=== PATIENT | female | born 1985 | race Caucasian/White ===

== ENCOUNTER 2016-11-03 22:20 | Emergency (ER) | payer BC ==
[2016-11-03 22:40] LABS: LEUKOCYTE ESTERASE,URINE 3+ (NEGATIVE); NITRITE,URINE NEGATIVE (NEGATIVE)
[2016-11-03 22:41] LABS: COLOR PALE YELLOW
--- NOTE | 2016-11-03 22:43 | UCPHY ---
H & P Patient Type: New HPI/ROS: CHIEF COMPLAINT: Dysuria, frequent urination. HISTORY OF PRESENT ILLNESS: The patient is a 31-year-old female with a history of UTI and interstitial cystitis presenting with dysuria and frequent urination. She reports that she chronically has the symptoms of UTI including dysuria but tonight the burning became more severe than it usually is. She admits associated lower abdominal pain and chills which are not usually present for her. She denies fever, diarrhea, vomiting, nausea, back pain, or other complaints. REVIEW OF SYSTEMS: Constitutional: No fever, no chills. Gastrointestinal: No nausea vomiting or diarrhea. No abdominal pain. Genitourinary: As above. Musculoskeletal: No back pain, or flank pain Abdomen: Soft, nontender. Some suprapubic sensitivity Skin: No rashes. Past Medical/Surgical History: Interstitial cystitis, UTI, jaw surgery. Social History: Mother. Physical Exam: General Appearance: Alert, no distress. Afebrile. Normal phonation. No respiratory distress. Abdomen: Soft and nontender, no masses, bowel sounds normal. No CVA tenderness Skin: Warm and dry, no rashes. Constitutional: Initial Vital Signs Temperature (C) 36.4 C 11/03/16 22:45 Heart Rate 83 11/03/16 22:45 Respiratory Rate 16 11/03/16 22:45 Blood Pressure 138/82 H 11/03/16 22:45 O2 Sat (%) 100 11/03/16 22:45 O2 Delivery Mode Room Air Allergies/Adverse Reactions: amoxicillin Allergy (Verified 11/03/16 22:40) Home Medications: Medication Instructions Recorded Nitrofurantoin Macrobid [Macrobid] 100 mg PO BID #10 cap 11/03/16 Phenazopyridine HCl [Pyridium] 200 mg PO TID #6 tab 11/03/16 Medical Decision Making ED Course/Re-evaluation: UA ordered and is consistent with UTI. Cultures pending We discussed therapeutic options. She is convinced that this is a bacterial process superimposed on top of her chronic interstitial cystitis. She thinks that to at the time of her jaw surgery some 4 weeks ago that she might have been on Cipro thus will go with nitrofurantoin. She also gone some peridium. Differential Diagnosis: Differential diagnosis includes but is not limited to: Urinary tract infection, pyelonephritis, cystitis, ureterolithiasis, kidney stone, urinary retention,. - Data Points Laboratory Results: 11/03/16 22:35 Urine Color PALE YELLOW Urine Appearance HAZY Urine pH 6.0 (5.0-7.5) Ur Specific [place] <= 1.005 (1.002-1.030) Urine Protein NEGATIVE (NEGATIVE) Urine Ketones NEGATIVE (NEGATIVE) Urine Blood 3+ H (NEGATIVE) Urine Nitrate NEGATIVE (NEGATIVE) Urine Bilirubin NEGATIVE (NEGATIVE) Urine Urobilinogen 0.2 EU EU (0.2-1.0) Ur Leukocyte Esterase 3+ H (NEGATIVE) Urine RBC 50-182 /hpf H /hpf (0-3) Urine WBC 50-182 /hpf H /hpf (0-3) Ur Epithelial Cells TRACE /lpf /lpf (NONE-1+) Urine Bacteria 2+ /hpf H /hpf (NONE SEEN) Ur Culture Indicated? INDICATED H (NI) Urine Glucose NEGATIVE (NEGATIVE) Medications Given: Discontinued Medications Nitrofurantoin (Macrobid 100mg Prepack#2) 1 btl TAKEHOME EDNOW ONE PRN Reason: Protocol Stop: 11/03/16 23:09 Last Admin: 11/03/16 23:18 Dose: 1 btl Phenazopyridine HCl (Pyridium) 200 mg PO EDNOW ONE Stop: 11/03/16 23:09 Last Admin: 11/03/16 23:18 Dose: 200 mg Departure - Departure Disposition: Home, Routine, Self-Care Clinical Impression: Cystitis Condition: Good Instructions: Nitrofurantoin Combination (By mouth), Urinary Tract Infection in Women (ED) Additional Instructions: Take Macrobid as prescribed. Operating for symptomatic improvement Follow up with your primary care provider next week if your symptoms are not improving. Return if fever nausea vomiting, or flank pain You have been given the telephone number of the on-call urologist and can follow up as needed. Use Ibuprofen and Tylenol for pain and/or fever. Return for any serious worsening of condition. Referrals: Tricia Brewster MD [Primary Care Provider] - As per Instructions Jordy Valladares MD [Medical Doctor] - As per Instructions Prescriptions: Nitrofurantoin Macrobid [Macrobid] 100 mg PO BID #10 cap Phenazopyridine HCl [Pyridium] 200 mg PO TID #6 tab - PQRS PQRS Measurement: Not applicable. Report Scribed for: Kuldeep Cisneros Report Scribed by: Dar Etienne Date of Report: 11/03/16 Time of Report: 22:42 Physician Review and Approval Statement: 11/03/16 22:42 Portions of this note were transcribed by a medical clinic manager. I personally performed a history, physical exam, medical decision making, and confirmed accuracy of information the transcribed note.
[2016-11-03 22:47] LABS: BACTERIA 2+ /hpf (NONE SEEN); RBC,URINE 50-182 /hpf (0-3); WBC,URINE 50-182 /hpf (0-3)
[2016-11-03 22:49] VITALS: BP 138/82; PULSE 83; RESP 16; TEMP 97.6; O2SAT 100
[2016-11-03] MEDS ORDERED: PHENAZOPYRIDINE HCL 200 MG TAB PO ONE (23:08)
[2016-11-03] MEDS ORDERED: NITROFURANTOIN 100MG PREPACK#2 BTL TAKEHOME ONE (23:08)
== END 2016-11-03 23:22 | disposition home or self-care (01) ==
LOC: CED 22:20
DX: N39.0 Urinary tract infection, site not specified (principal); B96.20 Unspecified Escherichia coli [E. coli] as the cause of diseases classified elsewhere
CPT/HCPCS: 81003-PO; 81015-PO; G0463-PO

== ENCOUNTER 2017-05-26 20:24 | Emergency (ER) | payer BC ==
[2017-05-26 20:48] VITALS: RESP 16
[2017-05-26] MEDS ORDERED: NS 1,000 ML IV ONE (21:00)
[2017-05-26] MEDS ORDERED: DIAZEPAM 10 MG/2 ML SYR IVP ONE (21:00)
[2017-05-26 21:06] LABS: COLOR YELLOW; LEUKOCYTE ESTERASE,URINE NEGATIVE (NEGATIVE); NITRITE,URINE NEGATIVE (NEGATIVE)
--- NOTE | 2017-05-26 21:06 | EDPHY ---
H & P Stated Complaint: headache,pain right neck and shoulder,tingling face,R arm Time Seen by Provider: 05/26/17 20:31 HPI/ROS: Chief Complaint: Headache, neck and shoulder pain HPI: 31-year-old woman presenting with 8 days of right-sided posterior headache with neck and shoulder pain. Has had some low of sensation of her arms tingling. She has seen her chiropractor twice since this started with no relief. Has had a history of temporomandibular joint disease with corrective surgery last September has no trouble since then. She has been taking Tylenol a 1000 mg every 6 hours and ibuprofen 600 mg every 6 hours without any relief. The headache is constant. It is described as feeling like the neck and her head is tight. At worst is a 5/10 rate is now. She has had some mild nausea but no vomiting. No vision or hearing changes. No dizziness or lightheadedness. No falls or injuries. It is not the worst headache of her life. It has been gradual in onset. It is not changing over the course of the day. There are no aggravating or alleviating factors. No photophobia. She has had a very significant migraine headache in the past that is not similar to this. She feels it is musculoskeletal in nature but is frustrated that the ibuprofen and Tylenol are not working. She has not had any worsening stressors or other changes in her life. ROS: 10 point Review of Systems is negative except as noted in the HPI. PMH: Interstitial cystitis Social History: No smoking, rare alcohol, no recreational drug use Family History: non-contributory Physical Exam: Gen: Awake, Alert, No Distress HEENT: Bilateral ears are normal Nose: no rhinorrhea Eyes: PERRLA, EOMI Mouth: Moist mucosa Neck: Supple, no JVD, she has got palpable spasm in the right trapezius at the insertion in the occiput and down the lateral aspect of her neck. No midline tenderness. She has no carotid bruits. Chest: nontender, lungs clear to auscultation Heart: S1, S2 normal, no murmur Abd: Soft, non-tender, no guarding Back: no CVA tenderness, no midline tenderness Ext: no edema, non-tender, sensations intact in the radial, median and ulnar nerve distribution Skin: no rash Neuro: CN II-XII intact, Sensation grossly intact, Strength 5/5 in bilateral upper and lower extremities. She has normal finger-nose. She has negative Romberg. Completely normal neurologic exam. - Personal History Current Tetanus Diphtheria and Acellular Pertussis (TDAP): Yes Tetanus Vaccine Date: 2014 - Medical/Surgical History Hx Asthma: No Hx Chronic Respiratory Disease: No Hx Diabetes: No Hx Cardiac Disease: No Hx Renal Disease: No Hx Cirrhosis: No Hx Alcoholism: No Hx HIV/AIDS: No Hx Splenectomy or Spleen Trauma: No Other PMH: Interstital CYSTITIS. JAW SURGERY - Social History Smoking Status: Never smoked Constitutional: Initial Vital Signs Temperature (C) 37.2 C 05/26/17 20:41 Heart Rate 80 05/26/17 20:41 Respiratory Rate 16 05/26/17 20:41 Blood Pressure 152/80 H 05/26/17 20:41 O2 Sat (%) 98 05/26/17 20:41 O2 Delivery Mode Room Air Allergies/Adverse Reactions: amoxicillin Allergy (Verified 05/26/17 20:39) Home Medications: Medication Instructions Recorded NK [No Known Home Meds] 05/26/17 Medical Decision Making ED Course/Re-evaluation: 31-year-old with nonspecific neck pain headache. Pain is improved after diazepam and Toradol. She is completely normal neurologic exam. No red flags for intracranial bleed, blood clot, or infection. She will follow up with primary care physician in 2 days. Will discharge her with some take-home diazepam as a muscle relaxer. I have suggested that acupuncture might provide her some relief. This should be done in coordination with primary care physician. She will return for any concerns or worsening symptoms. - Data Points Laboratory Results: Laboratory Results 05/26/17 21:10 05/26/17 21:10 05/26/17 05/26/17 05/26/17 21:10 21:10 21:00 WBC 11.39 10^3/uL H 10^3/uL (3.80-9.50) RBC 5.11 10^6/uL 10^6/uL (4.18-5.33) Hgb 14.4 g/dL g/dL (12.6-16.3) Hct 42.4 % % (38.0-47.0) MCV 83.0 fL fL (81.5-99.8) MCH 28.2 pg pg (27.9-34.1) MCHC 34.0 g/dL g/dL (32.4-36.7) RDW 12.6 % % (11.5-15.2) Plt Count 328 10^3/uL 10^3/uL (150-400) MPV 9.1 fL fL (8.7-11.7) Neut % (Auto) 67.1 % % (39.3-74.2) Lymph % (Auto) 23.0 % % (15.0-45.0) [place] % (Auto) 5.0 % % (4.5-13.0) Eos % (Auto) 4.1 % % (0.6-7.6) Baso % (Auto) 0.5 % % (0.3-1.7) Nucleat RBC Rel Count 0.0 % % (0.0-0.2) Absolute Neuts (auto) 7.64 10^3/uL H 10^3/uL (1.70-6.50) Absolute Lymphs (auto) 2.62 10^3/uL 10^3/uL (1.00-3.00) Absolute Monos (auto) 0.57 10^3/uL 10^3/uL (0.30-0.80) Absolute Eos (auto) 0.47 10^3/uL H 10^3/uL (0.03-0.40) Absolute Basos (auto) 0.06 10^3/uL 10^3/uL (0.02-0.10) Absolute Nucleated RBC 0.00 10^3/uL 10^3/uL (0-0.01) Immature Gran % 0.3 % % (0.0-1.1) Immature Gran # 0.03 10^3/uL 10^3/uL (0.00-0.10) Sodium 139 mEq/L mEq/L (134-144) Potassium 4.0 mEq/L mEq/L (3.5-5.2) Chloride 103 mEq/L mEq/L (97-110) Carbon Dioxide 23 mEq/l mEq/l (22-31) Anion Gap 13 mEq/L mEq/L (8-16) BUN 13 mg/dL mg/dL (7-23) Creatinine 1.1 mg/dL H mg/dL (0.6-1.0) Estimated GFR 57 Glucose 101 mg/dL H mg/dL (70-100) Calcium 9.4 mg/dL mg/dL (8.5-10.4) Urine Color YELLOW Urine Appearance CLEAR Urine pH 7.0 (5.0-7.5) Ur Specific Max 1.010 (1.002-1.030) Urine Protein NEGATIVE (NEGATIVE) Urine Ketones NEGATIVE (NEGATIVE) Urine Blood NEGATIVE (NEGATIVE) Urine Nitrate NEGATIVE (NEGATIVE) Urine Bilirubin NEGATIVE (NEGATIVE) Urine Urobilinogen 0.2 EU EU (0.2-1.0) Ur Leukocyte Esterase NEGATIVE (NEGATIVE) Urine Glucose NEGATIVE (NEGATIVE) Medications Given: Discontinued Medications Diazepam (Valium Injection) 5 mg IVP EDNOW ONE Stop: 05/26/17 21:01 Last Admin: 05/26/17 21:18 Dose: 5 mg Sodium Chloride (Ns) 1,000 mls @ 0 mls/hr IV ONCE ONE; Wide Open PRN Reason: Protocol Stop: 05/26/17 21:01 Last Admin: 05/26/17 21:19 Dose: 1,000 mls Ketorolac Tromethamine (Toradol) 15 mg IVP EDNOW ONE Stop: 05/26/17 21:41 Last Admin: 05/26/17 21:45 Dose: 15 mg Departure - Departure Disposition: Home, Routine, Self-Care Clinical Impression: Headache Condition: Good Instructions: General Headache (ED), Diazepam (By mouth) Additional Instructions: Follow up with her primary care physician in 2 days. You may take diazepam, 5 mg every 8 hours as needed for muscle pain and spasm. Continue alternating ibuprofen with acetaminophen every 4 hours for aches and pains. Return to the emergency department for worsening headache, nausea, vomiting, fevers, chills, stiff neck, or any other concerns. Referrals: Tricia Brewster MD [Primary Care Provider] - As per Instructions
[2017-05-26 21:13] LABS: % IMMATURE GRANULYOCYTES 0.3 % (0.0-1.1); ABSOLUTE IMMATURE GRANULOCYTES 0.03 10^3/uL (0.00-0.10); ADD DIFF? NO; ADD MORPH? NO; ADD SCAN? NO; ATYPICAL LYMPHOCYTE FLAG 10 (0-99); FRAGMENT RBC FLAG 0 (0-99); HEMATOCRIT 42.4 % (38.0-47.0); HEMOGLOBIN 14.4 g/dL (12.6-16.3); LEFT SHIFT FLG 0 (0-99); LIPEMIA HEMOLYSIS FLAG 90 (0-99); MEAN CELL HEMOGLOBIN 28.2 pg (27.9-34.1); MEAN PLATELET VOLUME 9.1 fL (8.7-11.7); PLATELET CLUMPS FLAG 0 (0-99); PLATELET COUNT 328 10^3/uL (150-400); RED BLOOD CELL COUNT 5.11 10^6/uL (4.18-5.33); RED CELL DISTRIBUTION WIDTH 12.6 % (11.5-15.2)
[2017-05-26 21:27] LABS: CALCIUM 9.4 mg/dL (8.5-10.4); CREATININE 1.1 mg/dL (0.6-1.0)
[2017-05-26] MEDS ORDERED: KETOROLAC 15 MG/1 ML SDV IVP ONE (21:40)
[2017-05-26] MEDS ORDERED: DIAZEPAM 5 MG PREPACK#4 BTL TAKEHOME ONE (22:09)
[2017-05-26 22:42] VITALS: BP 130/88; PULSE 68; TEMP 98.6; O2SAT 99
== END 2017-05-26 22:39 | disposition home or self-care (01) ==
LOC: CED 20:24
DX: R51 Headache (principal); E86.9 Volume depletion, unspecified
CPT/HCPCS: 80048-PO; 81003-PO; 85025-PO; 96374; J1885

== ENCOUNTER 2017-06-02 15:27 | Emergency (ER) | payer BC ==
[2017-06-02 15:41] VITALS: TEMP 98.6
[2017-06-02] MEDS ORDERED: LORazepam 1 MG TAB PO ONE (16:44)
--- NOTE | 2017-06-02 16:49 | EDPHY ---
H & P Time Seen by Provider: 06/02/17 16:04 HPI/ROS: CHIEF COMPLAINT: Anxiety HISTORY OF PRESENT ILLNESS: 31-year-old female arrives via private vehicle with her and child complaining of several weeks of worsening anxiety. No suicidal or homicidal ideation. Believes that she has a baseline of mild anxiety which has become exacerbated recently after a trip to the emergency department for ongoing headache at which point she was given prescription for Valium , notes that the Valium helps her anxiety but she does not like the adverse effect, notably the euphoria and somnolence. She has therefore not been taking this. She does not have an ongoing relationship with a therapist or mental health professional. She has no history of hospitalizations for mental health issues. No history of thyroid abnormality. PRIMARY CARE PROVIDER: Dr. Tricia Brewster PHYSICAL EXAM (Prior to examination, patient consented to physical exam, hands were washed and my usual and customary physical exam procedures followed) 1) GENERAL: Well-developed, well-nourished, alert and oriented. She is tearful , appears sad . 2) HEAD: Normocephalic 3) HEENT: sclera anicteric 4) LUNGS: Breathing comfortably. Smoking Status: Never smoked Constitutional: Initial Vital Signs Temperature (C) 37 C 06/02/17 15:39 Heart Rate 81 06/02/17 15:39 Respiratory Rate 18 06/02/17 15:39 Blood Pressure 135/80 H 06/02/17 15:39 O2 Sat (%) 99 06/02/17 15:39 O2 Delivery Mode Room Air Allergies/Adverse Reactions: amoxicillin Allergy (Verified 06/02/17 15:38) Home Medications: Medication Instructions Recorded LORazepam [Ativan] 0.5 mg PO Q6 #7 tablet 06/02/17 MDM/Departure - MDM Medications Given: Discontinued Medications Lorazepam (Ativan) 0.5 mg PO EDNOW ONE Stop: 06/02/17 16:45 Last Admin: 06/02/17 17:04 Dose: 0.5 mg ED Course/Re-evaluation: I empathized with this patient's symptoms. She does not meet criteria for a mental health hold. I do not think that emergency psychiatric evaluation is indicated at this time. I do think the patient would benefit from following up with mental health professional and provided her with the sources. I have also recommended she go to the [facility] 24 hour emergency psychiatric services on [address] today. After lengthy discussion she would like low dose of benzodiazepine has been prescribed 0.5 mg Ativan. Today is Sunday. Recommend she contact her primary care provider Sunday to discuss further evaluation, recommend she investigate mental health professionals. If any point she develops thoughts of hurting herself or others recommend she call 911 immediately.Care of patient under supervision of secondary supervising physician Dr Plata . - Depart Disposition: Home, Routine, Self-Care Clinical Impression: Anxiety Condition: Good Instructions: Anxiety (ED) Additional Instructions: If at any point you develop thoughts of hurting yourself or others, call 911 Prescriptions: LORazepam [Ativan] 0.5 mg PO Q6 #7 tablet Referrals: Tricia Brewster MD [Primary Care Provider] - 06/04/17 [facility],. [Clinic] - 06/04/17
[2017-06-02 17:35] VITALS: BP 113/66; PULSE 84; RESP 16; O2SAT 97
== END 2017-06-02 17:35 | disposition home or self-care (01) ==
DX: F41.9 Anxiety disorder, unspecified (principal)